=== PATIENT | female | born 1985 | race Caucasian/White ===

== ENCOUNTER 2021-04-14 15:04 | Emergency (ER) | payer MEDICAID, SELFPAY ==
[2021-04-14 15:19] VITALS: BP 119/74; PULSE 101; RESP 24; TEMP 36.8; O2SAT 100; BMI 24.9
--- NOTE | 2021-04-14 16:02 | ED_ITS ---
HPI - Nausea/Vomiting/Diarrhea General Chief complaint: Nausea/Vomiting/Diarrhea Stated complaint: headache, vomiting (11 weeks ) Time Seen by Provider: 04/14/21 15:51 Source: patient Mode of arrival: ambulatory Limitations: no limitations History of Present Illness HPI Narrative: Patient is a at 11 weeks of GA, comes in c/o vomiting and headache since this morning. Patient denies diarrhea, no abdominal pain, no cramping, no vaginal bleeding Related Data Previous Rx's Medication Instructions Recorded metoclopramide HCl 5 mg tablet 5 mg PO .T.i.d. PRN #10 tab 04/14/21 (Reglan) nitrofurantoin 100 mg PO Q12H 7 Days #14 cap 04/14/21 monohydrate/macrocrystals 100 mg capsule (Macrobid) tramadol 50 mg tablet 50 mg PO TID PRN #10 tab 04/14/21 Allergies Allergy/AdvReac Type Severity Reaction Status Date / Time No Known Allergies Allergy Unverified 02/28/20 16:25 Review of Systems Review of Systems: Constitutional : No Weight loss, No Fever, No Chills, No Night Sweats, No Fatigue, No Malaise ENT/Mouth : No Hearing loss, No Ear Pain, No Nasal Congestion, No Sinus Pain, No Hoarseness, No sore throat, No Rhinorrhea, No Swallowing Difficulty Eyes: No Eye Pain, No Swelling, No Redness, No Foreign Body, No Discharge, No Vision Changes Cardiovascular : No Chest Pain, No SOB, No Dyspnea on Exertion, No Orthopnea, No Edema, No Palpitations Respiratory : No Cough, No Sputum, No Wheezing, No Smoke Exposure, No Dyspnea Gastrointestinal : Complaining of nausea and vomiting, No Diarrhea, No Constip ation, No abdominal Pain, No Hematochezia, No Melena Genitourinary : no irregular bleeding, No Dysuria, No Urinary Frequency, No Hematuria, No Urinary Incontinence, No Urgency, No Flank Pain, No Urinary Flow Changes, No Hesitancy Musculoskeletal : No joint pain, No Myalgias, No Joint Swelling Skin : No Skin Lesions, No rash Neuro : No Weakness, No Numbness, No Paresthesias, No Loss of Consciousness, No Dizziness, No Headache Psych : No Anxiety/Panic, No Depression, No SI/HI/AH/VH, No Social Issues, Heme/Lymph: No Bruising, No Bleeding,No Lymphadenopathy Endocrine : No Polyuria, No Polydipsia, No Temperature Intolerance [facility] Social History Social History Smoked in Last 30 Days: No Use of substances other than those prescribed or required for medical reasons: No Advance Directives: No Advance Directives Information Provided: No Patient : Yes Physical Exam Vital Signs: Vital Signs: Last Vital Signs Temp 98.3 F 04/14/21 15:19 Pulse 101 H 04/14/21 15:19 Resp 20 04/14/21 16:34 BP 109/66 04/14/21 16:34 Pulse Ox 99 04/14/21 16:34 Body Mass Index 24.9 Const: Other: Appearance: Alert. Oriented X3. Seems uncomfortable Eyes: Pupils equal, round and reactive to light. ENT: Pharynx normal. Neck: Normal inspection. Neck supple. No lymph nodes noted. No crepitus CVS: Normal heart rate and rhythm. Pulses normal. Normal S1 and S2 Respiratory: No respiratory distress. Breath sounds normal. No Wheezing. No rales Abdomen: Soft and nontender. No rigidity. No distention. Skin: Skin warm and dry. Normal skin color. Normal skin turgor. Extremities: No lower extremity edema. No lower extremity edema. No Lacerations. No Rash Neuro: Oriented X 3. No motor deficit. No sensory deficit. Moving all extermities. No slurred speech. Course Course Course Narrative: pt receiverd IV fluids, metoclopramide and 1mg morphine. Patient states that she is feeling much better, no longer having a headache, not having any nausea or vomiting. Patient states she has no medication at home. Patient does have a UTI. First dose of Macrobid given in the emergency room MDM - Nausea/Vomiting/Diarrhea Lab Data Result diagrams: 04/14/21 16:18 04/14/21 16:43 Labs: Lab Results 04/14/21 04/14/21 04/14/21 Range/Units 16:18 16:43 Unknown WBC 10.1 (4.8-10.8) X10*3/uL RBC 4.20 (4.20-5.50) X10*6/uL Hgb 12.8 (12.0-16.0) g/dl Hct 37.5 (37.0-47.0) % MCV 89.3 (80.0-98.0) fL MCH 30.5 (27.0-33.0) pg MCHC 34.1 (31.0-35.0) g/dl RDW 12.1 (11.0-16.0) % Plt Count 223 (160-400) X10*3/uL MPV 10.8 (9.4-12.3) fL Immature Gran % (Auto) 1.3 H (0.0-0.4) % Neut % (Auto) 71.6 (45-73) % Lymph % (Auto) 18.2 L (20-40) % [place] % (Auto) 7.2 (2-11) % Eos % (Auto) 1.1 (0-4) % Baso % (Auto) 0.6 (0-2) % Lymph # (Auto) 1.9 (1.2-4.9) X10*3/uL [place] # (Auto) 0.7 (0.1-1.2) X10*3/uL Eos # (Auto) 0.1 (0.0-0.4) X10*3/uL Baso # (Auto) 0.1 (0.0-0.2) X10*3/uL Abs Immat Gran (auto) 0.13 H (0.00-0.03) X10*3/uL Absolute Neuts (auto) 7.26 (2.0-8.3) x10*3/uL Absolute Nucleated RBC 0.000 (0.0-0.012) X10*3/uL Nucleated RBC % (auto) 0.0 (0.0-0.2) /100WBC Sodium 138 (135-145) mmol/L Potassium 4.0 (3.3-5.1) mmol/L Chloride 106 (96-108) mmol/L Carbon Dioxide 23 (22-29) mmol/L Anion Gap 13 (12-20) BUN 7 L (9-16) mg/dL Creatinine 0.58 (0.5-1.4) mg/dL Estim Creat Clear Calc 127.5 Estimated GFR > 60 Random Glucose 82 (60-115) mg/dL Calcium 9.0 (8.4-10.2) mg/dL Total Bilirubin 0.7 (0.0-1.0) mg/dL Direct Bilirubin 0.2 (0.0-0.5) mg/dL AST 15 (5-31) U/L ALT 25 (0-31) U/L Alkaline Phosphatase 78 (39-117) U/L Total Protein 6.3 L (6.5-8.0) g/dL Albumin 4.1 (3.5-5.0) g/dL Urine Color YELLOW Urine Appearance TURBID Urine pH 7.0 (5.0-8.0) Ur Specific [place] 1.015 (1.005-1.025) Urine Protein NEG (NEG-TRACE) MG/DL Urine Glucose (UA) NEG (NEG) MG/DL Urine Ketones NEG (NEG) MG/DL Urine Blood NEG (NEG) Urine Nitrite NEG (NEG) Ur Leukocyte Esterase 3+ H (NEG) Urine RBC 0 (0) /HPF Urine WBC 5-9 H (0-4) /HPF Ur Squamous Epith Cells 3+ /LPF Ur Renal Epithelial Cell TRACE /LPF Amorphous Sediment TRACE /LPF Urine Bacteria 2+ /LPF Urine Mucus 2+ /LPF Urine Test (NEGATIVE) 04/14/21 Range/Units Unknown WBC (4.8-10.8) X10*3/uL RBC (4.20-5.50) X10*6/uL Hgb (12.0-16.0) g/dl Hct (37.0-47.0) % MCV (80.0-98.0) fL MCH (27.0-33.0) pg MCHC (31.0-35.0) g/dl RDW (11.0-16.0) % Plt Count (160-400) X10*3/uL MPV (9.4-12.3) fL Immature Gran % (Auto) (0.0-0.4) % Neut % (Auto) (45-73) % Lymph % (Auto) (20-40) % [place] % (Auto) (2-11) % Eos % (Auto) (0-4) % Baso % (Auto) (0-2) % Lymph # (Auto) (1.2-4.9) X10*3/uL [place] # (Auto) (0.1-1.2) X10*3/uL Eos # (Auto) (0.0-0.4) X10*3/uL Baso # (Auto) (0.0-0.2) X10*3/uL Abs Immat Gran (auto) (0.00-0.03) X10*3/uL Absolute Neuts (auto) (2.0-8.3) x10*3/uL Absolute Nucleated RBC (0.0-0.012) X10*3/uL Nucleated RBC % (auto) (0.0-0.2) /100WBC Sodium (135-145) mmol/L Potassium (3.3-5.1) mmol/L Chloride (96-108) mmol/L Carbon Dioxide (22-29) mmol/L Anion Gap (12-20) BUN (9-16) mg/dL Creatinine (0.5-1.4) mg/dL Estim Creat Clear Calc Estimated GFR Random Glucose (60-115) mg/dL Calcium (8.4-10.2) mg/dL Total Bilirubin (0.0-1.0) mg/dL Direct Bilirubin (0.0-0.5) mg/dL AST (5-31) U/L ALT (0-31) U/L Alkaline Phosphatase (39-117) U/L Total Protein (6.5-8.0) g/dL Albumin (3.5-5.0) g/dL Urine Color Urine Appearance Urine pH (5.0-8.0) Ur Specific [place] (1.005-1.025) Urine Protein (NEG-TRACE) MG/DL Urine Glucose (UA) (NEG) MG/DL Urine Ketones (NEG) MG/DL Urine Blood (NEG) Urine Nitrite (NEG) Ur Leukocyte Esterase (NEG) Urine RBC (0) /HPF Urine WBC (0-4) /HPF Ur Squamous Epith Cells /LPF Ur Renal Epithelial Cell /LPF Amorphous Sediment /LPF Urine Bacteria /LPF Urine Mucus /LPF Urine Test POSITIVE H (NEGATIVE) Discharge Plan Discharge Clinical Impression: Hyperemesis UTI (urinary tract infection) during Qualifiers: Trimester: first trimester Qualified Code(s): O23.41 - Unspecified infection of urinary tract in , first trimester Migraine Qualifiers: Migraine type: unspecified Status migrainosus presence: without status migrainosus Intractability: not intractable Qualified Code(s): G43.909 - Migraine, unspecified, not intractable, without status migrainosus Patient Disposition: Home, Self-Care Instructions: Hyperemesis Gravidarum (ED), Migraine Headache (ED), Urinary Tract Infection in (ED) Additional Instructions: Please follow-up with your primary care physician tomorrow. If you have any worsening or new symptoms, please return to the emergency room or call 911 Prescriptions: New nitrofurantoin monohyd/m-cryst [Macrobid] 100 mg capsule 100 mg PO Q12H 7 Days Qty: 14 RF: 0 metoclopramide HCl [Reglan] 5 mg tablet 5 mg PO .T.i.d. PRN (Reason: nausea and vomiting) Qty: 10 RF: 0 tramadol 50 mg tablet 50 mg PO TID PRN (Reason: migraine headache) Qty: 10 RF: 0
[2021-04-14 16:22] LABS: MANUAL DIFF FLAG NO
[2021-04-14 16:23] LABS: Basophils Absolute Auto 0.1 X10*3/uL (0.0-0.2); Basophils Percent Auto 0.6 % (0-2); Eosinophils Absolute Auto 0.1 X10*3/uL (0.0-0.4); Eosinophils Percent Auto 1.1 % (0-4); Hematocrit 37.5 % (37.0-47.0); Hemoglobin 12.8 g/dl (12.0-16.0); Imm Gran Abs Auto 0.13 X10*3/uL (0.00-0.03); Imm Gran Pct Auto 1.3 % (0.0-0.4); Lymphocytes Absolute Auto 1.9 X10*3/uL (1.2-4.9); Lymphocytes Percent Auto 18.2 % (20-40); Mean Corpuscular HGB Conc 34.1 g/dl (31.0-35.0); Mean Corpuscular Hemoglobin 30.5 pg (27.0-33.0); Mean Corpuscular Volume 89.3 fL (80.0-98.0); Mean Platelet Volume 10.8 fL (9.4-12.3); Monocytes Absolute Auto 0.7 X10*3/uL (0.1-1.2); Monocytes Percent Auto 7.2 % (2-11); Neutrophils Absolute Auto 7.26 x10*3/uL (2.0-8.3); Neutrophils Percent Auto 71.6 % (45-73); Platelet Count 223 X10*3/uL (160-400); Red Cell Distribution Width 12.1 % (11.0-16.0); White Blood Count 10.1 X10*3/uL (4.8-10.8)
[2021-04-14] MEDS: Metoclopramide HCl 10 MG/2 ML VIAL IVPUSH (16:28)
[2021-04-14] MEDS: 0.9 % Sodium Chloride 1,000 ML 999 ML IVCONT (16:28)
[2021-04-14] MEDS: Morphine Sulfate 2 MG/ML CARTRIDGE 1 MG IVPUSH (16:28)
[2021-04-14 16:34] VITALS: BP 109/66; RESP 20; O2SAT 99
[2021-04-14 16:51] LABS: Appearance Urine TURBID; Color Urine YELLOW; Glucose Urine UA NEG (NEG); Leukocyte Esterase Urine 3+ (NEG); Nitrite Urine NEG (NEG); Specific Gravity - Urine 1.015 (1.005-1.025); UACC Culture Trigger YES; Urine Blood NEG (NEG); Urine Ketones NEG (NEG); Urine Protein NEG (NEG-TRACE)
[2021-04-14 16:53] LABS: UPreg QC Valid YES; Urine Pregnancy POSITIVE (NEGATIVE)
[2021-04-14 17:01] LABS: Bacteria Urine 2+ /LPF; RBC Urine 0 /HPF (0)
[2021-04-14 17:02] LABS: Amorphous Sediment Urine TRACE /LPF; Mucus Urine 2+ /LPF; Renal Epithelial Cells Urine TRACE /LPF; Squamous Epithelial Cell Urine 3+ /LPF
[2021-04-14 17:09] LABS: Alanine Aminotransferase 25 U/L (0-31); Albumin Level 4.1 g/dL (3.5-5.0); Alkaline Phosphatase 78 U/L (39-117); Anion Gap 13 (12-20); Aspartate Amino Transferase 15 U/L (5-31); Bilirubin Direct 0.2 mg/dL (0.0-0.5); Bilirubin Total 0.7 mg/dL (0.0-1.0); Blood Urea Nitrogen 7 mg/dL (9-16); Carbon Dioxide 23 mmol/L (22-29); Chloride 106 mmol/L (96-108); Creatinine Clr Calc Pharmacy 127.5; Estimated Glomerular Filt Rate > 60; Glucose Random 82 mg/dL (60-115); Sodium 138 mmol/L (135-145); Total Protein 6.3 g/dL (6.5-8.0)
[2021-04-14 17:42] VITALS: BP 101/54; PULSE 98; RESP 18; O2SAT 100
[2021-04-14] MEDS: Nitrofurantoin Monohyd/M-Cryst 100 MG CAPSULE PO (17:42)
== END 2021-04-14 17:47 | disposition home or self-care (01) ==
PROVIDERS: Emergency Provider Emergency Medicine; PCP Family Medicine
DX: O21.0 Mild hyperemesis gravidarum (principal); G43.909 Migraine, unspecified, not intractable, without status migrainosus; O23.41 Unspecified infection of urinary tract in pregnancy, first trimester; Z79.899 Other long term (current) drug therapy
CPT/HCPCS: 36415; 80048; 80076; 81001; 81025; 85025; 87086; 96361; 96374; 96375; 99284; J2270; J2765

== ENCOUNTER 2023-04-10 22:55 | Inpatient (IN) | payer MEDICAID, SELFPAY ==
--- NOTE | ~2023-04-10 | CT_ITS ---
EXAMINATION: CT ABDOMEN AND PELVIS WITH CONTRAST CLINICAL INFORMATION: Right lower quadrant pain, question appendicitis COMPARISON: 12/01/2020 TECHNIQUE: Multidetector volumetric images were obtained from the superior aspect of the liver through the pubic symphysis following administration 85 mL of Omnipaque 350 intravenous contrast. Sagittal and coronal reformatted images were obtained on the technologist's workstation. Oral contrast: No This CT examination was performed using dose optimization techniques as appropriate, variously including the following: *Automated exposure control *Adjustment of mA and/or kV according to patient size (this includes techniques or standardized protocols for targeted exams where dose is matched to indication/reason for exam; i.e. extremities or head) *Use of iterative reconstruction technique DLP: 536 mGy-cm FINDINGS: LUNG BASES: The visualized lung bases are unremarkable. LIVER, GALLBLADDER, AND BILIARY TREE: The liver is normal in size, shape, and attenuation. No focal hepatic lesion or biliary ductal dilatation is present. The gallbladder is unremarkable with no evidence of radiopaque gallstones, gallbladder wall thickening, or obvious pericholecystic inflammatory changes. PANCREAS: Unremarkable. SPLEEN: Unremarkable. ADRENAL GLANDS: Unremarkable. KIDNEYS AND URETERS: Bilateral nephrograms are symmetric. No hydronephrosis or obstructing calculus identified. BLADDER: Unremarkable. GASTROINTESTINAL TRACT: No evidence of bowel obstruction or significant wall thickening. The appendix is dilated and fluid-filled measuring approximately 10 mm in diameter. Proximal appendicolith is present, and there is mild surrounding stranding. Overall appearance is suspicious for acute appendicitis. No associated free air or abscess. ABDOMINAL WALL: No significant hernia is appreciated. LYMPH NODES: Normal. VASCULAR: Unremarkable. PELVIC VISCERA: Patient appears status post hysterectomy. Small amount of pelvic free fluid. OSSEOUS STRUCTURES: Unremarkable. CT/CT abdomen pelvis w IV con IMPRESSION: Findings suspicious for acute appendicitis as described above. Small amount of pelvic free fluid, which may be reactive or physiologic.
[2023-04-10 23:01] VITALS: BP 110/72; PULSE 99; RESP 16; TEMP 36.7; O2SAT 99; BMI 23.7
[2023-04-11] VITALS (22 sets, daily range): BP systolic 98–117; BP diastolic 57–80; PULSE 78–120; RESP 14–20; TEMP 36–37.6; O2SAT 95–100; BMI 23.7
[2023-04-11 00:11] LABS: Hematocrit 41.3 % (37.0-47.0); Mean Corpuscular HGB Conc 33.9 g/dl (31.0-35.0); Mean Corpuscular Hemoglobin 30.2 pg (27.0-33.0); Mean Platelet Volume 10.6 fL (9.4-12.3); Platelet Count 223 X10*3/uL (160-400); Red Blood Count 4.64 X10*6/uL (4.20-5.50); Red Cell Distribution Width 11.9 % (11.0-16.0); White Blood Count 19.4 X10*3/uL (4.8-10.8)
[2023-04-11 00:19] LABS: Alanine Aminotransferase 59 U/L (0-31); Albumin Level 4.9 g/dL (3.5-5.0); Alkaline Phosphatase 133 U/L (39-117); Anion Gap 18 (12-20); Aspartate Amino Transferase 28 U/L (5-31); Bilirubin Total 0.6 mg/dL (0.0-1.0); Blood Urea Nitrogen 10 mg/dL (9-16); Calcium 11.2 mg/dL (8.4-10.2); Carbon Dioxide 23 mmol/L (22-29); Chloride 102 mmol/L (96-108); Creatinine Clr Calc Pharmacy 89.5; Estimated Glomerular Filt Rate > 60; Glucose Random 101 mg/dL (60-115); Lipase 27 U/L (8-78); Sodium 139 mmol/L (135-145); Total Protein 7.9 g/dL (6.5-8.0)
--- NOTE | 2023-04-11 00:45 | ED_ITS ---
HPI - Abdominal Pain General Chief Complaint: Abdominal Pain Stated Complaint: RT side abd pain Time Seen by Provider: 04/11/23 00:41 Source: patient Mode of arrival: ambulatory Limitations: no limitations History of Present Illness HPI narrative: Patient status post hysterectomy comes in with acute onset of pain right lower quadrant since 18:00 has severe nausea and vomiting pain increased on ambulation never had similar pain in the past no history of kidney stone or urinary symptoms no fever or chills no diarrhea Related Data Previous Rx's Medication Instructions Recorded metoclopramide HCl 5 mg tablet 5 mg PO .T.i.d. PRN nausea and 04/14/21 (Reglan) vomiting #10 tabs nitrofurantoin 100 mg PO Q12H 7 days #14 caps 04/14/21 monohydrate/macrocrystals 100 mg capsule (Macrobid) tramadol 50 mg tablet 50 mg PO TID PRN migraine headache 04/14/21 #10 tabs Allergies Allergy/AdvReac Type Severity Reaction Status Date / Time No Known Allergies Allergy Unverified 02/28/20 16:25 Review of Systems Review of Systems Yes all other systems are reviewed and are negative [facility] Past Medical History Surgical History (Updated 04/11/23 @ 00:53 by Danny Merlos MD) Hx of hysterectomy Social History Social History Smoked in Last 30 Days: No Use of substances other than those prescribed or required for medical reasons: No Advance Directives: No Advance Directives Information Provided: Yes Patient : No Physical Exam ED Vital Signs: Vital Signs - 24 hr 04/10/23 23:01 04/11/23 00:59 Temperature 98.0 F 99.2 F Pulse Rate 99 113 H Respiratory Rate 16 16 Blood Pressure 110/72 117/80 Pulse Oximetry 99 96 Oxygen Delivery Method Room Air Room Air BMI result Body Mass Index 23.7 Appearance: Alert. Oriented X3. In moderate distress Eyes: PERRLA, no pallor/ icterus ENT: Pharynx normal. Oral Mucosa moist Neck: Normal inspection. Neck supple. CVS: Normal heart rate and rhythm. Pulses normal. Respiratory: No respiratory distress. Equal air entry bilateral, no wheezing/rales/rhonchi Abdomen: Soft , tenderness right lower quadrant with guarding and rebound tenderness Bowel sounds are present, no mass palpable, no CVA tenderness Skin: Skin warm and dry. Normal skin color. Normal skin turgor. Extremities: No lower extremity edema. No calf tenderness Neuro: Oriented X 3. Medical Decision Making Medical Decision Making [facility] Narrative: Patient acute onset of right lower quadrant pain possible appendicitis Patient signed out to Dr. Archer pending CT scan report Differential Diagnosis Differential Diagnoses: The differential diagnosis associated with the presentation includes Acute appendicitis/kidney stone/ovarian cyst/colitis Lab Data [facility] Lab Attestation statement: I reviewed the patient's lab results. 04/10/23 23:57 04/10/23 23:57 Labs: Lab Results 04/10/23 04/11/23 Range/Units 23:57 00:56 WBC 19.4 H (4.8-10.8) X10*3/uL RBC 4.64 (4.20-5.50) X10*6/uL Hgb 14.0 (12.0-16.0) g/dl Hct 41.3 (37.0-47.0) % MCV 89.0 (80.0-98.0) fL MCH 30.2 (27.0-33.0) pg MCHC 33.9 (31.0-35.0) g/dl RDW 11.9 (11.0-16.0) % Plt Count 223 (160-400) X10*3/uL MPV 10.6 (9.4-12.3) fL Absolute Nucleated RBC 0.000 (0.0-0.012) X10*3/uL Nucleated RBC % (auto) 0.0 (0.0-0.2) /100WBC Sodium 139 (135-145) mmol/L Potassium 4.0 (3.3-5.1) mmol/L Chloride 102 (96-108) mmol/L Carbon Dioxide 23 (22-29) mmol/L Anion Gap 18 (12-20) BUN 10 (9-16) mg/dL Creatinine 0.75 (0.5-1.4) mg/dL Estim Creat Clear Calc 89.5 Estimated GFR > 60 Random Glucose 101 (60-115) mg/dL Calcium 11.2 H D (8.4-10.2) mg/dL Total Bilirubin 0.6 (0.0-1.0) mg/dL AST 28 (5-31) U/L ALT 59 H (0-31) U/L Alkaline Phosphatase 133 H (39-117) U/L Total Protein 7.9 (6.5-8.0) g/dL Albumin 4.9 (3.5-5.0) g/dL Lipase 27 (8-78) U/L Urine Color Yellow Urine Appearance Clear Urine pH 5.5 (5.0-9.0) Ur Specific [place] 1.020 (1.005-1.025) Urine Protein Negative (Neg-Trace) mg/dL Urine Glucose (UA) Negative (Negative) mg/dL Urine Ketones Negative (Negative) mg/dL Urine Blood Negative (Negative) Urine Nitrite Negative (Negative) Ur Leukocyte Esterase Trace H (Negative) Urine RBC 0-2 (0-2) /HPF Urine WBC 0-5 (0-5) /HPF Ur Squamous Epith Cells 0-2 (0-2) /HPF Urine Bacteria None Seen (None Seen) Hyaline Casts 0-2 (0-2) /LPF Medications Administered Discontinued Medications Generic Name Dose Route Start Last Admin Trade Name Peterq PRN Reason Stop Dose Admin Sodium Chloride 1,000 mls @ 999 mls/hr 04/11/23 00:44 04/11/23 00:56 Ns IV 04/11/23 01:44 999 mls/hr .Q1H1M ONE Administration Morphine Sulfate 4 mg 04/11/23 00:44 04/11/23 00:56 Morphine Sulfate 4 Mg/Ml Cartridge IVPUSH 04/11/23 00:45 4 mg ONCE ONE Administration Protocol Ondansetron HCl 4 mg 04/11/23 00:44 04/11/23 00:56 Ondansetron Hcl 4 Mg/2 Ml Vial IVPUSH 04/11/23 00:45 4 mg ONCE ONE Administration Discharge Plan Discharge Clinical Impression: Abdominal pain Patient Disposition: Still a Patient Prescriptions: No Action nitrofurantoin monohyd/m-cryst [Macrobid] 100 mg capsule 100 mg PO Q12H 7 Days Qty: 14 0RF Rx Instructions: must administer with a meal/food metoclopramide HCl [Reglan] 5 mg tablet 5 mg PO .T.i.d. PRN (Reason: nausea and vomiting) Qty: 10 0RF tramadol 50 mg tablet 50 mg PO TID PRN (Reason: migraine headache) Qty: 10 0RF
[2023-04-11] MEDS: 0.9 % Sodium Chloride 1,000 ML 999 ML IV (00:56)
[2023-04-11] MEDS: Morphine Sulfate 4 MG/ML CARTRIDGE IVPUSH ×2 (00:56→01:57)
[2023-04-11] MEDS: ondansetron HCL 4 MG/2 ML VIAL IVPUSH ×2 (00:56→23:16)
[2023-04-11 01:04] LABS: Appearance Urine Clear; Color Urine Yellow; Glucose Urine UA Negative (Negative); Leukocyte Esterase Urine Trace (Negative); Nitrite Urine Negative (Negative); PH 5.5 (5.0-9.0); UMIC TRIGGER UACC YES; Urine Blood Negative (Negative); Urine Ketones Negative (Negative); Urine Protein Negative (Neg-Trace)
[2023-04-11 01:06] LABS: Bacteria Urine None Seen (None Seen); Hyaline Casts Urine 0-2 /LPF (0-2); RBC Urine 0-2 /HPF (0-2); Squamous Epithelial Cell Urine 0-2 /HPF (0-2); WBC Urine 0-5 /HPF (0-5)
--- NOTE | 2023-04-11 01:07 | PC.NURSE ---
Pt presents to ED with complaints of right lower abdominal pain starting suddenly earlier tonight. Pt endorses nausea and vomiting in the waiting room. Pt is A&Ox4, GCS 15, with warm, dry skin. YU Wilhelm placed a 20g IV in the right AC and pt was medicated per AUG. Pt labs drawn and sent. Pt waiting CT at this time.
[2023-04-11] MEDS: Piperacillin Sodium/Tazobactam 3.375 GM in 0.9 % Sodium Chloride 50 ML IV ×4 (01:58→19:30)
--- NOTE | 2023-04-11 02:34 | PM.HPGS ---
History of Present Illness History of Present Illness Date of Service: 04/11/23 Chief complaint: Appendicitis, Acute Narrative: Paola Mack is a 37 year old female who presented with vague abdominal pain localizing to her right lower quadrant associated with anorexia. She was found to have a leukocytosis, an appendicolith and swollen appendix on CT. Her , Edmundo, is at the bedside. Patient gave permission to discuss her health in front of him a. She denies any personal or family history of GI malignancy, Crohn's disease, and denies any prior issues of chronic GI distress. Patient reports a past surgical history of a hysterectomy for EARL. She denies any significant family history including inflammatory bowel disease in GI malignancy She denies any smoking, drinking and works as a school nurse Review of Systems Review of Systems: Yes all other systems are reviewed and are negative Constitutional: Constitutional: Reports as per [facility] Surgical History Surgical History Hx of hysterectomy Social History Social History Household Members: Family Housing: House Do you presently have visiting nurse or other home services: No Patient Tobacco Use Status: Never used Tobacco Smoked in Last 30 Days: No Use of substances other than those prescribed or required for medical reasons: No Have you been hit, kicked, punched, or otherwise hurt by someone within the past year? If so, by whom?: No Do you feel safe in your current relationship?: Yes Is there a partner from a previous relationship who is making you feel unsafe now?: No Are you made to feel afraid or neglected: No Advance Directives: No Advance Directives Information Provided: Yes Do you have thoughts of harming others: None Do you have a plan to hurt others: No Plan Recently lost weight without trying: Unsure Nutrition Risks: No Nutritional Risk Patient : No : No Poor oral hygiene: No Meds Allergies Allergy/AdvReac Type Severity Reaction Status Date / Time No Known Allergies Allergy Unverified 02/28/20 16:25 Physical Exam Vital Signs: Vital Signs: Last Vital Signs Temp 99.2 F 04/11/23 00:59 Pulse 116 H 04/11/23 02:03 Resp 16 04/11/23 02:03 BP 110/67 04/11/23 02:03 Pulse Ox 96 04/11/23 02:03 O2 Del Method Room Air 04/11/23 02:03 BMI result Body Mass Index 23.7 On exam, the patient appears tired and uncomfortable but she is nontoxic She is in no acute respiratory distress Heart is regular Lungs are clear and equal anteriorly Abdomen has right lower quadrant tenderness with irritation to percussion but her abdomen is not rigid and her pain is localized to the right lower quadrant. Results Results Labs: Short CBC 04/10/23 Range/Units 23:57 WBC 19.4 H (4.8-10.8) X10*3/uL Hgb 14.0 (12.0-16.0) g/dl Hct 41.3 (37.0-47.0) % Plt Count 223 (160-400) X10*3/uL BMP 04/10/23 23:57 Sodium 139 Potassium 4.0 Chloride 102 Carbon Dioxide 23 BUN 10 Creatinine 0.75 Calcium 11.2 H D Liver Function 04/10/23 Range/Units 23:57 Total Bilirubin 0.6 (0.0-1.0) mg/dL AST 28 (5-31) U/L ALT 59 H (0-31) U/L Alkaline Phosphatase 133 H (39-117) U/L Albumin 4.9 (3.5-5.0) g/dL Urine 04/11/23 Range/Units 00:56 Urine Color Yellow Urine Appearance Clear Urine pH 5.5 (5.0-9.0) Ur Specific [place] 1.020 (1.005-1.025) Urine Protein Negative (Neg-Trace) mg/dL Urine Glucose (UA) Negative (Negative) mg/dL Abdomen CT scan report/results: report reviewed and image reviewed CT scan - pelvis: report reviewed and image reviewed Assessment and Plan (1) Acute appendicitis: Status: Acute Plan I reviewed options with the patient including medical management with IV antibiotics verses operative appendectomy. The inherent risks of bleeding, infection, need to leave a temporary drain, activity restrictions, possible work issues, need to convert to open surgery were all discussed and her questions seemed to be satisfactorily answered. Her 's questions seemed to be satisfactorily answered. Patient seemed understand her options and wanted to proceed with a laparoscopic, possible open appendectomy as recommended. See orders; void urinary bladder monitoring coordinator, continue IV antibiotics. SCDs. For OR this morning at 10:00, continue NPO Time Spent With Patient Time: Total time managing care of this patient today ____ minutes. Quality Stroke Does the patient have a stroke diagnosis?: No VTE Prior VTE?: No VTE Risk Level:: Surgical - moderate VTE Device Contraindication: N/A - Device Ordered VTE Drug Contraindication: Treatment Not Indicated Procedures Date of Service Date of Service: 04/11/23
[2023-04-11] MEDS: HYDROmorphone HCl 0.5 MG/0.5 ML SYRINGE 0.25 MG IVPUSH ×4 (02:59→14:26)
[2023-04-11] MEDS: Lactated Ringers 1,000 ML 125 ML IVCONT ×3 (02:59→17:27)
--- NOTE | 2023-04-11 08:12 | P.OP_ITS ---
Operative Note Operative Note Date of Service: 04/11/23 Narrative: Preop diagnosis: [Acute appendicitis] Postop diagnosis: [same] Procedure: [laparoscopic appendectomy] Surgeon: Ortega Naik MD Assist: [none] Anesthesia: [GET, local: ] Estimated blood loss: [3cc] Specimen: [Acutely inflamed appendix] Intraoperative findings: [Acutely inflamed appendix with serous fluid in the pelvis that was aspirated. No significant adhesions from her prior hysterectomy were appreciated. Otherwise, grossly normal peritoneal surface and liver visualized] Indications: [The patient is a 37-year-old woman with no significant GI history who has a history of hysterectomy for EARL who presented with vague abdominal pain localizing to her right lower quadrant, leukocytosis and a CT confirming acute appendicitis. Options were discussed including medical management versus operative appendectomy. The patient seemed understand her options. The inherent risks of a laparoscopic, possible open appendectomy include: Bleeding, infection, conversion to open surgery, possible need for a temporary drain, possible need for blood transfusion or reoperation in the event of bleeding and the unlikely but possible issue of changing the plan due to intraoperative pathology that was unexpected. Patient seemed understand her options, both she and her Edmundo had their questions answered and the patient wanted to proceed.] Procedure: [The patient was identified in the preoperative holding area and again in the operating room. An appropriate time-out was performed. 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 Sequential compression stockings were placed. The patient was induced in general endotracheal anesthesia administered with excellent effect. The abdomen was widely prepped and draped in the usual manner for surgery. Preemptive local was used at all trocar insertion sites. The abdomen was accessed using a Veress needle. A vertical supraumbilical incision was made through 1 of her prior incision scars, the Veress needle inserted without incident, an appropriate drop test performed and a pneumoperitoneum of 15 mmHg was obtained using carbon dioxide. Opening pressures were 4 mmHg. Next, the Veress needle was withdrawn and the abdomen was accessed through the incision with a 30 degree/5 mm laparoscoped over Optiview trocar technique without incident. In examining the bowel & mesentary deep to the Veress needle, no evidence of injury was present. The remaining trocars were placed under direct laparoscopic vision with preemptive analgesia. The patient was then positioned in Trendelenburg, banked left. The appendix was identified and tracked down to the cecum. A window was made in the mesoappendix and the mesoappendix carefully dissected using the 5 mm LigaSure [place] tip. An Endo-FREDIS 30 stapler, purple load, was placed across t he appendiceal base on the cecum the and fired with good hemostasis and closure. The specimen was placed in an Endo-Catch bag and delivered through the 12 mm port in the left lower quadrant. Operative field was irrigated and inspected for hemostasis which was good. The serous fluid in the pelvis was aspirated and noted to be clear, likely transit dated due to the appendicitis. Patient was returned to neutral position, the abdomen deflated and the trocars removed. 12 mm fascia was closed with 0- Polysorb and skin closed with 4-0 Monocryl subcuticular sutures. The abdomen was washed and dried, Mastisol and Steri-Strips applied followed by Band-Aids. Patient tolerated the procedure well and was sent to the recovery in stable condition. All sponge instrument counts were correct. At the patient's request, I called her Edmundo at [phone] to review operative findings and plan. His questions seemed to be satisfactorily answered.]
--- NOTE | 2023-04-11 09:16 | PC.NURSE ---
Report called to Stacey Chowdhury in [facility]
--- NOTE | 2023-04-11 09:53 | HO.ANESPROP2 ---
HPI - Anesthesia Eval Consult details Narrative: for lap. appendectomy PMFSH Active Problems Active Problems: All Active Problems (Updated 04/11/23 @ 08:10 by Ortega Naik MD) Acute appendicitis (Acute) Abdominal pain (Acute) Past Medical History Patient : No Family History Family history of problems with anesthesia: No Surgical History Surgical History (Updated 04/11/23 @ 09:43 by Radha Brown RN) Hx of tonsillectomy Hx of hysterectomy History of Problems with Anesthesia: No Social History Social History Household Members: Family Housing: House Do you presently have visiting nurse or other home services: No Patient Tobacco Use Status: Never used Tobacco Meds Allergies Allergy/AdvReac Type Severity Reaction Status Date / Time No Known Allergies Allergy Unverified 02/28/20 16:25 Active Medications: Current Medications Acetaminophen (Acetaminophen 325 Mg Tablet) 975 mg PO Q6H PRN PRN Reason: Pain, Mild (Pain Scale 1-3) Hydromorphone HCl (Hydromorphone Hcl 0.5 Mg/0.5 Ml Syringe) 0.25 mg IVPUSH Q2H PRN; Protocol PRN Reason: Pain, Moderate(Pain Scale 4-6) Last Admin: 04/11/23 07:44 Dose: 0.25 mg Piperacillin Sod/Tazobactam (Sod 3.375 gm/ Sodium Chloride) 50 mls @ 100 mls/hr IV Q6H [facility] Last Infusion: 04/11/23 08:17 Dose: Infused Lactated Ringer's (Lr) 1,000 mls @ 125 mls/hr IVCONT .Q8H [facility] Last Admin: 04/11/23 02:59 Dose: 125 mls/hr Ondansetron HCl (Ondansetron Hcl 4 Mg/2 Ml Vial) 4 mg IVPUSH Q6H PRN PRN Reason: Nausea and Vomiting Exam Exam Date and Time: April 11, 2023 0953 Height,Weight and Vital Signs: Height 5 ft 4 in Weight 62.596 kg Last Vital Signs Temp 98 F 04/11/23 06:50 Pulse 114 H 04/11/23 06:50 Resp 16 04/11/23 06:50 BP 98/57 L 04/11/23 06:50 Pulse Ox 98 04/11/23 06:50 O2 Del Method Room Air 04/11/23 06:50 Pertinent Lab Results Pertinent Lab Results: Laboratory Tests 04/10/23 04/11/23 23:57 00:56 WBC 19.4 H RBC 4.64 Hgb 14.0 Hct 41.3 MCV 89.0 MCH 30.2 MCHC 33.9 RDW 11.9 Plt Count 223 MPV 10.6 Absolute Nucleated RBC 0.000 Nucleated RBC % (auto) 0.0 Sodium 139 Potassium 4.0 Chloride 102 Carbon Dioxide 23 Anion Gap 18 BUN 10 Creatinine 0.75 Estim Creat Clear Calc 89.5 Estimated GFR > 60 Random Glucose 101 Calcium 11.2 H D Total Bilirubin 0.6 AST 28 ALT 59 H Alkaline Phosphatase 133 H Total Protein 7.9 Albumin 4.9 Lipase 27 Urine Color Yellow Urine Appearance Clear Urine pH 5.5 Ur Specific [place] 1.020 Urine Protein Negative Urine Glucose (UA) Negative Urine Ketones Negative Urine Blood Negative Urine Nitrite Negative Ur Leukocyte Esterase Trace H Urine RBC 0-2 Urine WBC 0-5 Ur Squamous Epith Cells 0-2 Urine Bacteria None Seen Hyaline Casts 0-2 Airway Mallampati Class: I TM Dist: >3cm Neck ROM: Full Loose/Missing/Broken Teeth: No Heart: ok Lungs: ok Assessment and Plan Assessment Anesthesia Assessment: Anesthesia Plan Discussed and Chart Reviewed Final Anesthetic Review Family History of Problems with Anesthesia: No History of Problems with Anesthesia: No NPO: Yes ASA Class: I and Emergency Final Preanesthetic Review: No Changes in Pt Med Stat, Meds/Allgs Chart Reviewed, Consent Obtained/Reviewed and Anes Risks/Benef Reviewed Patient Risk: Intermediate Procedure Risk: Intermediate Anesthetic Plan Anesthetic Plan: GA and Agree w/ Assess. and Plan Disposition: Standard PACU
--- NOTE | 2023-04-11 15:01 | PHA.MEDREC ---
Pharmacy Consult ? Medication Reconciliation Pharmacy has completed the medication reconciliation. Spoke to patient and verified medication list.
--- NOTE | 2023-04-11 15:58 | PM.PNGS ---
Subjective Subjective Date of Service: 04/11/23 Patient reports: still having pain and pain is less Interval history: The patient is seen on med surge postoperatively. She still is having abdominal pain but denies any nausea or vomiting. She has not gotten any liquids yet. Patient is sleepy which is not unexpected given being up all night. She has no difficulty breathing or shortness of breath. Physical Exam Vital Signs: Vital Signs: Last Vital Signs Temp 97.8 F 04/11/23 15:00 Pulse 100 04/11/23 15:00 Resp 18 04/11/23 15:00 BP 103/67 04/11/23 15:00 Pulse Ox 96 04/11/23 15:00 O2 Del Method Room Air 04/11/23 15:00 BMI result Body Mass Index 23.7 On exam she is nontoxic She is having no respiratory difficulty Dressings are clean and intact Objective Data Active Medications Acetaminophen (Acetaminophen 325 Mg Tablet) 975 mg PO Q6H PRN PRN Reason: Pain, Mild (Pain Scale 1-3) Docusate Sodium (Docusate Sodium 100 Mg Capsule) 200 mg PO BID [facility] Fentanyl (Fentanyl Citrate/Pf 100 Mcg/2 Ml Vial) 50 mcg IVPUSH Q5M PRN; Protocol PRN Reason: Pain, Severe (Pain Scale 7-10) Hydromorphone HCl (Hydromorphone Hcl 0.5 Mg/0.5 Ml Syringe) 0.25 mg IVPUSH Q2H PRN; Protocol PRN Reason: Pain, Moderate(Pain Scale 4-6) Last Admin: 04/11/23 14:26 Dose: 0.25 mg Documented By: MIMI Hydromorphone HCl (Hydromorphone Hcl 0.5 Mg/0.5 Ml Syringe) 1 mg IVPUSH Q5M PRN; Protocol PRN Reason: Pain, Severe (Pain Scale 7-10) Piperacillin Sod/Tazobactam (Sod 3.375 gm/ Sodium Chloride) 50 mls @ 100 mls/hr IV Q6H [facility] Last Admin: 04/11/23 14:34 Dose: 100 mls/hr Documented By: MIMI Lactated Ringer's (Lr) 1,000 mls @ 80 mls/hr IVCONT .[id number] [facility] Last Admin: 04/11/23 12:31 Dose: 125 mls/hr Documented By: MIMI Ondansetron HCl (Ondansetron Hcl 4 Mg/2 Ml Vial) 4 mg IVPUSH Q6H PRN PRN Reason: Nausea and Vomiting Ondansetron HCl (Ondansetron Hcl 4 Mg/2 Ml Vial) 4 mg IVPUSH ONCE PRN PRN Reason: Nausea and Vomiting Oxycodone HCl (Oxycodone Hcl Immed Release 5 Mg Tablet) 5 mg PO Q4H PRN PRN Reason: Pain, Moderate(Pain Scale 4-6) Labs 04/10/23 23:57 04/10/23 23:57 Labs: Laboratory Results - last 24 hr 04/10/23 04/11/23 23:57 00:56 MCV 89.0 MCH 30.2 MCHC 33.9 RDW 11.9 Plt Count 223 MPV 10.6 Absolute Nucleated RBC 0.000 Nucleated RBC % (auto) 0.0 Anion Gap 18 Estim Creat Clear Calc 89.5 Estimated GFR > 60 Random Glucose 101 Calcium 11.2 H D Total Bilirubin 0.6 AST 28 ALT 59 H Alkaline Phosphatase 133 H Total Protein 7.9 Albumin 4.9 Lipase 27 Urine Color Yellow Urine Appearance Clear Urine pH 5.5 Ur Specific [place] 1.020 Urine Protein Negative Urine Glucose (UA) Negative Urine Ketones Negative Urine Blood Negative Urine Nitrite Negative Ur Leukocyte Esterase Trace H Urine RBC 0-2 Urine WBC 0-5 Ur Squamous Epith Cells 0-2 Urine Bacteria None Seen Hyaline Casts 0-2 Procedures Date of Service Date of Service: 04/11/23 Progress Note: A&P Assessment and plan (1) S/P appendectomy: Status: Acute (2) Acute appendicitis: Status: Acute Plan I have recommended continued observation and repeat labs given her current clinical state, presenting leukocytosis. Patient was reassured that she had very clear acute appendicitis and postoperative plan was reviewed, her questions answered. At her request, I left a voicemail with her , Edmundo. Time Spent With Patient Time: Total time managing care of this patient today ____ minutes. Quality Stroke Does the patient have a stroke diagnosis?: No VTE Prior VTE?: No VTE Risk Level:: Surgical - moderate VTE Device Contraindication: N/A - Device Ordered VTE Drug Contraindication: Treatment Not Indicated
[2023-04-11] MEDS: Acetaminophen 325 MG TABLET 975 MG PO (17:27)
[2023-04-11] MEDS: oxyCODONE HCl Immed Release 5 MG TABLET PO ×2 (17:28→23:07)
[2023-04-11] MEDS: Docusate Sodium 100 MG CAPSULE 200 MG PO (19:30)
[2023-04-12] MEDS: Acetaminophen 325 MG TABLET 975 MG PO ×2 (00:02→08:23)
[2023-04-12] MEDS: Piperacillin Sodium/Tazobactam 3.375 GM in 0.9 % Sodium Chloride 50 ML IV ×2 (02:21→08:19)
[2023-04-12 03:55] VITALS: BP 109/61; PULSE 92; RESP 16; TEMP 36; O2SAT 98
[2023-04-12] MEDS: Butalb/Acetamin/Caff 50/325/40 TABLET 1 TAB PO (05:54)
[2023-04-12 06:09] LABS: MANUAL DIFF FLAG NO
[2023-04-12 06:16] LABS: Basophils Percent Auto 0.3 % (0-2); Eosinophils Absolute Auto 0.1 X10*3/uL (0.0-0.4); Eosinophils Percent Auto 1.3 % (0-4); Hematocrit 34.4 % (37.0-47.0); Hemoglobin 11.6 g/dl (12.0-16.0); Imm Gran Abs Auto 0.04 X10*3/uL (0.00-0.03); Imm Gran Pct Auto 0.4 % (0.0-0.4); Lymphocytes Absolute Auto 1.7 X10*3/uL (1.2-4.9); Lymphocytes Percent Auto 18.2 % (20-40); Mean Corpuscular HGB Conc 33.7 g/dl (31.0-35.0); Mean Corpuscular Hemoglobin 30.1 pg (27.0-33.0); Mean Corpuscular Volume 89.1 fL (80.0-98.0); Mean Platelet Volume 10.3 fL (9.4-12.3); Monocytes Absolute Auto 0.7 X10*3/uL (0.1-1.2); Neutrophils Absolute Auto 6.5 x10*3/uL (2.0-8.3); Neutrophils Percent Auto 71.8 % (45-73); Platelet Count 187 X10*3/uL (160-400); Red Blood Count 3.86 X10*6/uL (4.20-5.50); Red Cell Distribution Width 11.8 % (11.0-16.0); White Blood Count 9.1 X10*3/uL (4.8-10.8)
[2023-04-12 06:36] LABS: Anion Gap 14 (12-20); Blood Urea Nitrogen 5 mg/dL (9-16); Carbon Dioxide 23 mmol/L (22-29); Chloride 105 mmol/L (96-108); Creatinine Clr Calc Pharmacy 100.2; Estimated Glomerular Filt Rate > 60; Glucose Random 87 mg/dL (60-115); Potassium 3.6 mmol/L (3.3-5.1); Sodium 138 mmol/L (135-145)
--- NOTE | 2023-04-12 06:52 | PM.PNGS ---
Subjective Subjective Date of Service: 04/12/23 Patient reports: no new complaints, feels better, still having pain, tolerating liquids well and flatus Interval history: The patient reports interval improvement since last night but still notes incisional pain as to be expected. She denies chest pain, difficulty breathing, shortness of breath. She denies nausea or vomiting. Physical Exam Vital Signs: Vital Signs: Last Vital Signs Temp 96.8 F 04/12/23 03:55 Pulse 92 04/12/23 03:55 Resp 16 04/12/23 03:55 BP 109/61 04/12/23 03:55 Pulse Ox 98 04/12/23 03:55 O2 Del Method Room Air 04/11/23 23:55 BMI result Body Mass Index 23.7 On exam, she is nontoxic She is in no acute respiratory distress Abdominal dressings are clean, dry and intact with appropriate abdominal incisional pain Objective Data Active Medications Acetaminophen (Acetaminophen 325 Mg Tablet) 975 mg PO Q6H PRN PRN Reason: Pain, Mild (Pain Scale 1-3) Last Admin: 04/12/23 00:02 Dose: 975 mg Documented By: TRACI Docusate Sodium (Docusate Sodium 100 Mg Capsule) 200 mg PO BID [facility] Last Admin: 04/11/23 19:30 Dose: 200 mg Documented By: TRACI Fentanyl (Fentanyl Citrate/Pf 100 Mcg/2 Ml Vial) 50 mcg IVPUSH Q5M PRN; Protocol PRN Reason: Pain, Severe (Pain Scale 7-10) Hydromorphone HCl (Hydromorphone Hcl 0.5 Mg/0.5 Ml Syringe) 0.25 mg IVPUSH Q2H PRN; Protocol PRN Reason: Pain, Moderate(Pain Scale 4-6) Last Admin: 04/11/23 14:26 Dose: 0.25 mg Documented By: MIMI Hydromorphone HCl (Hydromorphone Hcl 0.5 Mg/0.5 Ml Syringe) 1 mg IVPUSH Q5M PRN; Protocol PRN Reason: Pain, Severe (Pain Scale 7-10) Piperacillin Sod/Tazobactam (Sod 3.375 gm/ Sodium Chloride) 50 mls @ 100 mls/hr IV Q6H [facility] Last Infusion: 04/12/23 02:54 Dose: Infused Documented By: TRACI Lactated Ringer's (Lr) 1,000 mls @ 80 mls/hr IVCONT .[id number] [facility] Last Infusion: 04/12/23 01:27 Dose: Infused Documented By: TRACI Ondansetron HCl (Ondansetron Hcl 4 Mg/2 Ml Vial) 4 mg IVPUSH Q6H PRN PRN Reason: Nausea and Vomiting Last Admin: 04/11/23 23:16 Dose: 4 mg Documented By: TRACI Ondansetron HCl (Ondansetron Hcl 4 Mg/2 Ml Vial) 4 mg IVPUSH ONCE PRN PRN Reason: Nausea and Vomiting Oxycodone HCl (Oxycodone Hcl Immed Release 5 Mg Tablet) 5 mg PO Q4H PRN PRN Reason: Pain, Moderate(Pain Scale 4-6) Last Admin: 04/11/23 23:07 Dose: 5 mg Documented By: TRACI Labs 04/12/23 05:58 04/12/23 05:58 Labs: Laboratory Results - last 24 hr 04/12/23 05:58 MCV 89.1 MCH 30.1 MCHC 33.7 RDW 11.8 Plt Count 187 MPV 10.3 Immature Gran % (Auto) 0.4 Neut % (Auto) 71.8 Lymph % (Auto) 18.2 L [place] % (Auto) 8.0 Eos % (Auto) 1.3 Baso % (Auto) 0.3 Lymph # (Auto) 1.7 [place] # (Auto) 0.7 Eos # (Auto) 0.1 Baso # (Auto) 0.0 Abs Immat Gran (auto) 0.04 H Absolute Neuts (auto) 6.5 Absolute Nucleated RBC 0.000 Nucleated RBC % (auto) 0.0 Anion Gap 14 Estim Creat Clear Calc 100.2 Estimated GFR > 60 Random Glucose 87 Calcium 9.0 D Procedures Date of Service Date of Service: 04/12/23 Progress Note: A&P Assessment and plan (1) S/P appendectomy: Status: Acute (2) Acute appendicitis: Status: Acute Plan Instructions regarding diet and activity reviewed and apparently understood. Patient has been advanced to a regular diet and, if tolerated should be okay for discharge later this morning. Prescriptions were sent to the hospital pharmacy for her convenience. I will need to see her in 1 week, sooner if she has problems. Time Spent With Patient Time: Total time managing care of this patient today ____ minutes. Quality Stroke Does the patient have a stroke diagnosis?: No VTE Prior VTE?: No VTE Risk Level:: Surgical - moderate VTE Device Contraindication: N/A - Device Ordered VTE Drug Contraindication: Treatment Not Indicated
[2023-04-12 07:00] VITALS: BP 102/59; PULSE 87; RESP 16; TEMP 36.6; O2SAT 97
--- NOTE | 2023-04-12 08:05 | P.DS_ITS ---
DS: Providers Provider Date of Service: 04/12/23 Date of admission: 04/11/23 02:36 Primary care physician: Unknown Physician Consults: 04/11/23 02:25 Consult to General Surgery Stat Consulting Provider: [facility] General Surgeons Reason for consultation: appendicitis Has provider been notified: No DS: Diagnosis Discharge Diagnosis (1) S/P appendectomy: Status: Acute (2) Acute appendicitis: Status: Acute DS: Summary Hospital Course Hospital Course: See admitting H and P for full details. Briefly, this 37-year-old woman was admitted with abdominal pain and noted to have acute appendicitis with significant leukocytosis. After hydration and bowel rest, she was taken urgently for a laparoscopic appendectomy. Postoperatively, her diet advancement was somewhat sluggish requiring her to be in the hospital overnight but at the day of discharge on postop day 1, she was tolerating clear liquids which was advanced to a regular diet, her pain adequately controlled and she was discharged in improved condition. Time Spent with Patient Time attestation: Total time managing care of this patient today ____ minutes. Discharge coordination time: Less than 30 minutes Quality: Safe Use of Opioids Does Pt have an Active Cancer Diagnosis on the Problem List?: No Quality: Stroke Does the patient have a stroke diagnosis?: No Physical Exam Vital Signs: Vital Signs: Last Vital Signs Temp 97.8 F 04/12/23 07:00 Pulse 87 04/12/23 07:00 Resp 16 04/12/23 07:00 BP 102/59 L 04/12/23 07:00 Pulse Ox 97 04/12/23 07:00 O2 Del Method Room Air 04/12/23 07:00 BMI result Body Mass Index 23.7 DS: Data Data Completed and Pending Pending studies at discharge: Pending at discharge 04/11/23 10:54 Surgical [PTH] Routine Labs on day of discharge: Laboratory Results - last 24 hr 04/12/23 05:58 WBC 9.1 RBC 3.86 L Hgb 11.6 L Hct 34.4 L MCV 89.1 MCH 30.1 MCHC 33.7 RDW 11.8 Plt Count 187 MPV 10.3 Immature Gran % (Auto) 0.4 Neut % (Auto) 71.8 Lymph % (Auto) 18.[address] [place] % (Auto) 8.0 Eos % (Auto) 1.3 Baso % (Auto) 0.3 Lymph # (Auto) 1.7 [place] # (Auto) 0.7 Eos # (Auto) 0.1 Baso # (Auto) 0.0 Abs Immat Gran (auto) 0.04 H Absolute Neuts (auto) 6.5 Absolute Nucleated RBC 0.000 Nucleated RBC % (auto) 0.0 Sodium 138 Potassium 3.6 Chloride 105 Carbon Dioxide 23 Anion Gap 14 BUN 5 L Creatinine 0.67 Estim Creat Clear Calc 100.2 Estimated GFR > 60 Random Glucose 87 Calcium 9.0 D Discharge Plan Discharge Anticipated Discharge Date/Time: 04/12/23 11:58 Patient Disposition: Home, Self-Care Discharge Diagnosis: acute appendicitis Referrals: Physician,Carlos J [Primary Care Provider] - 1 Week Ortega Naik MD [Physician] - 1 Week Discharge Medications: New ondansetron HCl 4 mg tablet 4 mg PO Q6H PRN (Reason: nausea and vomiting) Qty: 10 0RF oxycodone 5 mg tablet 5 mg PO Q4H PRN (Reason: pain) Qty: 20 0RF Rx Instructions: Partial Fill upon patient request. Continued fluoxetine 20 mg Capsule 60 mg PO DAILY Diet: Advance to usual diet Activity on Discharge: No heavy lifting Stand Alone Forms: Patient Portal Discharge page Activity Restrictions/Additional Instructions: You had a laparoscopic appendectomy performed by Dr. Naik. It is normal to feel some minor abdominal discomfort due to the gas from the operation, however if you develop severe pain in your abdomen or chest, fevers over 100F, vomiting and are unable to keep liquids down, you should contact Dr. Naik or report to the nearest emergency department. If your incisions become red, swollen and tender, draining pus or have problems, please contact Dr. Naik report to the nearest emergency department. If you have bandages on your incisions, leave them in place for 48 hours, then remove them. You can shower but not soak in a tub after removing the bandages. If there are paper tapes known as butterflies/Steri-Strips, leave them fall off on their own in 1-2 weeks. You do not need to put another bandage on your incisions unless your clothing rubs and irritates your incisions. You can shower after you removed your bandages in 48 hours, but do not soak in a tub, go in a pool, or go swimming in a [place] pond or ocean. Please let the paper tapes to dry after getting them wet. You do not need to replace a bandage on lesser clothing irritates the incision. You may find that pants with an elastic waist like gym cloths or suspenders are more comfortable than pants requiring a belt until your incisions completely heal. Because of the operation, you should not lift more than 20 lb for the next 4 weeks. Any strenuous activity such as lifting more than 20 lb, digging, yoga, any athletic activity, like running, soccer, or other strenuous activity, lifting heavy bags/groceries, swimming, martial arts, or other strenuous athletic activities can cause hernias. If you have any questions regarding a specific activity, please ask Dr. Naik. Avoiding strenuous activities will minimize the risk of incisional hernias. At your 1 week post-op office visit, Dr. Naik will discuss returning to work on light duty with you. Since you can perform light duty, you are not disabled, but your employer may not allow you to return until you have no restrictions; it is up to you to discuss this issue, as we cannot disclose personal information. Please bring any paperwork to that follow-up appointment from your employer. Please note that you are not disabled and need to discuss your work restrictions for medical reasons with your employer. If you do not have a follow-up post-op visit, call [phone] to schedule one, or call with questions. If you were prescribed an antibiotic, continue taking the medication as prescribed. The anesthesia from the operation and pain medicine will cause constipation. You can purchase [id number]-tdg-ijukazh stool softener known as Colace/docusate, 100 mg and take 2 tablets in the morning with breakfast and 2 tablets in the evening after dinner to minimize this problem. Even if you are not taking narcotics, the anesthesia can cause constipation. Unless you have a medical reason, you should take onea-[id number] T ylenol/acetaminophen, 2 tablets with izfw-bvz-pdyezgq ibuprofen, 2 tablets, every 6 hours to help with pain. Add the narcotic pain medicine if you are still having pain. Ice packs are also allowed to minimize pain and swelling. You should eat a high-protein, high-fiber, low-fat diet to optimize healing. Please resume any preoperative medications unless otherwise directed by Dr. Naik. Please contact your primary care provider for a follow-up appointment in 2 weeks. Care Plan Goals: Allow adequate postoperative healing Health Concerns: Allow adequate postoperative healing Plan of Treatment: Allow adequate postoperative healing Assessment: Acute appendicitis, status post laparoscopic appendectomy
[2023-04-12] MEDS: Docusate Sodium 100 MG CAPSULE 200 MG PO (08:19)
[2023-04-12] MEDS: oxyCODONE HCl Immed Release 5 MG TABLET PO (08:23)
--- NOTE | 2023-04-12 09:20 | MHC.CM.PN ---
Addendum entered by Brittaney Gilliam 04/12/23 11:50: Patient is discharged to home today. She has arranged for a ride home. Addendum entered by Naima Montero 04/12/23 09:22: PCP: VINOD MORENO AT [facility] Original Note: Female 37 S/P Appendectomy She lives with her family. She is independent with all functional mobility. She declines the offer to document a HCP. DP home self care. Patient has arranged for transportation home from a family member.
--- NOTE | 2023-04-12 13:30 | HO.POSTANES ---
Post Anesthesia Evaluation Post Anesthesia Evaluation Date of Service: 04/12/23 Vital Signs: Vital Signs Temp Pulse Resp BP Pulse Ox O2 Del Method 04/12/23 08:26 Room Air 04/12/23 07:00 97.8 F 87 16 102/59 L 97 Room Air 04/12/23 03:55 96.8 F 92 16 109/61 98 Anesthesia: General Endotracheal-GETA Mental Status: Awake Pain Control: Satisfactory Nausea/Vomiting: None Hydration: Adequate Anesthesia-Related Issues: No Anes. Related Issues
== END 2023-04-12 11:52 | disposition home or self-care (01) | DRG 234 ==
LOC: HO.ED 04-11 01:44 → HO.EDOVER 04-11 02:40 → HO.S3 04-11 05:33
PROVIDERS: Admitting Provider Surgery; Emergency Provider Internal Medicine; PCP Nurse Practitioner Primary Care; Visit Provider Surgery
PROC: 0DTJ4ZZ Resection of Appendix, Percutaneous Endoscopic Approach (ICD-10-PCS; CPT 44970; principal; 2023-04-11 10:00)
DX: K35.80 Unspecified acute appendicitis (principal); Z90.710 Acquired absence of both cervix and uterus
CPT/HCPCS: 36415; 74177; 80048; 80053; 81001; 83690; 85025; 85027; 88304; 99221; 99285; C1713; J0131; J1170; J2250; J2270; J2405; J2543; J2795; J3010

== ENCOUNTER → 2023-04-11 02:36 | Outpatient (BNV) | payer MEDICAID, SELFPAY | PROVIDERS: Admitting Provider Surgery; Emergency Provider Internal Medicine; Visit Provider Surgery | DX: Z90.49 Acquired absence of other specified parts of digestive tract (principal); K35.80 Unspecified acute appendicitis | CPT/HCPCS: 44970; 99024; 99222 ==

== ENCOUNTER 2023-04-25 09:33 | Outpatient (AMB) | payer MEDICAID, SELFPAY ==
--- NOTE | 2023-04-25 09:39 | A.OFFVIS_ITS ---
Intake Vital Signs 04/25/23 09:43 Height 5 ft 4 in Weight 142 lb 13.753 oz BMI 24.5 BP 123/69 Blood Pressure Location Rt brachial Position Sitting Pulse 110 H Pulse Source Pulse Oximeter Temp 96.5 F L Temp Source Tympanic Pulse Oximetry (%) 96 Oxygen Delivery Method Room Air Intake Visit Reasons: Post op for appendectomy on 04/11 Allergies No Known Allergies Allergy (Unverified 02/28/20 16:25) HPI HPI Comments History of Present Illness Details The patient returns for follow-up after laparoscopic appendectomy for acute suppurative appendicitis 04/11/23. The patient is overall doing well and tolerating her diet, but she notes that the day of discharge, she started to experience symptoms of vaginal candidiasis. She originally took OTC Monistat which was unsuccessful so she contacted her rn diabetes and was prescribed Diflucan which initially seemed to help, but the symptoms have returned. [facility] Surgical History History of laparoscopic appendectomy Hx of tonsillectomy Hx of hysterectomy Social History Household Members: Family Housing: House Do you presently have visiting nurse or other home services: No Patient Tobacco Use Status: Never used Tobacco service: No Physical Exam On exam, she is anicteric and nontoxic She is in no acute respiratory distress Abdominal incisions are well healed with no evidence of hernia or cellulitis Results Reviewed Results Reviewed: Pathology confirmed acute suppurative appendicitis with no evidence of malignancy Assessment & Plan Assessment & Plan (1) S/P appendectomy: Code(s): Z90.49 - Acquired absence of other specified parts of digestive tract Plan Instructions regarding activity restrictions, specifically that the patient cannot lift more than 20 lb for the next month to minimize risk of incisional hernia was reviewed and apparently understood. 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 She looks a little uncomfortable today so I have given her a work note stating that she will be out for medical reasons and she will contact when she is improved after additional treatment and ready to return to work. Questions answered. Coding Level of Care Code Global (24366) Diagnoses S/P appendectomy Z90.49
[2023-04-25 09:43] VITALS: BP 123/69; PULSE 110; TEMP 35.8; O2SAT 96; BMI 24.5
== END 2023-04-25 09:58 | disposition home or self-care (01) ==
PROVIDERS: PCP Nurse Practitioner Primary Care; Visit Provider Surgery
DX: Z90.49 Acquired absence of other specified parts of digestive tract (principal)
CPT/HCPCS: 99024

== ENCOUNTER → 2023-04-25 09:33 | Outpatient (BNVA) | payer MEDICAID, SELFPAY | PROVIDERS: PCP Nurse Practitioner Primary Care; Visit Provider Surgery ==

== ENCOUNTER 2023-09-13 08:15 | Outpatient (AMB) | payer OTHER, SELFPAY ==
[2023-09-13 08:24] VITALS: BP 108/64; PULSE 98; TEMP 37.2; O2SAT 98; BMI 24.4
--- NOTE | 2023-09-13 08:24 | MHC.OFFWIV ---
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 She states last week she also had nausea vomiting and diarrhea which has resolved. [facility] Surgical History History of laparoscopic appendectomy Hx of tonsillectomy Hx of hysterectomy Social History (Reviewed 04/25/23 @ 09:55 by Ortega Naik MD, FACS, [facility]) Household Members: Family Housing: House Do you presently have visiting nurse or other home services: No Patient Tobacco Use Status: Never used Tobacco service: No Review of Systems Const All systems reviewed & are unremarkable except as noted in HPI and below Physical Exam Vital Signs: Last Vital Signs Temp 99.0 F 09/13/23 08:24 Pulse 98 09/13/23 08:24 BP 108/64 09/13/23 08:24 Pulse Ox 98 09/13/23 08:24 Oxygen Delivery Method Room Air 09/13/23 08:24 BMI result Body Mass Index 24.4 HEENT Head: Yes normal to inspection Ears: hearing grossly normal bilaterally, external ears normal and TM's normal bilaterally General nose exam: Normal external nose present Face and sinus: Yes sinuses nontender Throat: Yes posterior oropharynx abnormal (Exudative erythematous) Resp Effort & Inspection: normal respiratory effort Cardio Palpation: normal PMI Rate: regular rate Results AMB Rapid Strep AMB Rapid Strep Negative Last Edit by Rosendo Plummer CMA on 09/13/23 08:41 Results Reviewed Results Reviewed: Laboratory Last Values Strep Scn Rapid Clinic Negative 09/13/23 08:40 Her rapid strep was negative today and also reviewed with the patient was her EKG which was normal sinus rhythm. Assessment & Plan Assessment & Plan (1) Sore throat: Code(s): J02.9 - Acute pharyngitis, unspecified Plan: The patient will push fluids and I treated her for exudative pharyngitis. A put her on prednisone 2 decrease inflammation in her throat. If she can not swallow water she will go to the emergency department. Plan See plan Orders: Orders AMB Rapid Strep Screen Today Z13.9 - Encounter for screening, unspecified Zonia Zaldivar NP SARS-CoV2/FLU/RSV Today J02.9 - Acute pharyngitis, unspecified RHONDA Barrios Medications: New amoxicillin 875 mg PO BID 20 tabs 0RF 10 days RHONDA Barrios prednisone Take 3 tabs for 3 days 10 mg PO DIRECTED 10 tabs 0RF J02.9 - Acute pharyngitis, unspecified RHONDA Barrios Coding Level of Care Code Est Pt Level 4 (53026) Diagnoses Sore throat J02.9
== END 2023-09-13 09:39 | disposition home or self-care (01) ==
PROVIDERS: PCP Nurse Practitioner Primary Care; Visit Provider Physician Assistant Medical
DX: J02.9 Acute pharyngitis, unspecified (principal)
CPT/HCPCS: 87880; 99214

== ENCOUNTER 2023-09-13 12:50 | Outpatient (REF) | payer OTHER, SELFPAY ==
[2023-09-13 13:37] LABS: Influenza A PCR NEGATIVE (Negative); Influenza B PCR NEGATIVE (Negative); Resp Syncy Virus RNA Qual PCR NEGATIVE (Negative); SARS COV2 PCR INHOUSE NEGATIVE (Negative)
== END 2023-09-13 12:51 | disposition home or self-care (01) ==
LOC: HO.LNP 12:50
PROVIDERS: Visit Provider Physician Assistant Medical
DX: J02.9 Acute pharyngitis, unspecified (principal)
CPT/HCPCS: 0241U

== ENCOUNTER 2023-09-19 15:01 | Emergency (ER) | payer OTHER, SELFPAY ==
--- NOTE | ~2023-09-19 | CT_ITS ---
EXAMINATION: CT HEAD WITHOUT CONTRAST CLINICAL INFORMATION: Blunt head trauma without loss of consciousness, significant head injury and posttraumatic headache. COMPARISON: None available. TECHNIQUE: Contiguous axial imaging was performed from the skull base to vertex without intravenous administration of contrast. This CT examination was performed using dose optimization techniques as appropriate, variously including the following: *Automated exposure control *Adjustment of mA and/or kV according to patient size (this includes techniques or standardized protocols for targeted exams where dose is matched to indication/reason for exam; i.e. extremities or head) *Use of iterative reconstruction technique DLP: 939.47 mGy-cm FINDINGS: Ventricles, sulci and cisterns are normal. There is no midline shift, no abnormal intra- or extra- axial fluid accumulation. Biswas and white matter differentiation is normal. Bone window images show no evidence of skull fracture. CT/CT head/brain wo IV con IMPRESSION: 1. Normal CT scan of the brain. 2. No intracranial hemorrhage or skull fracture is seen. 3. No evidence of space occupying lesion could be found. 4. The current plain CT scan of the brain shows no diagnostic evidence of acute cerebral infarction.
--- NOTE | ~2023-09-19 | CT_ITS ---
EXAMINATION: CT CERVICAL SPINE WITHOUT CONTRAST CLINICAL INFORMATION: Cervical spine injury and pain COMPARISON: None available. TECHNIQUE: Multiple 3.0 and 0.6 mm axial images were obtained from base of skull to T1 levels without IV contrast enhancement. Sagittal and coronal 2.0 mm bone window images were reconstructed from axial image data. This CT examination was performed using dose optimization techniques as appropriate, variously including the following: *Automated exposure control *Adjustment of mA and/or kV according to patient size (this includes techniques or standardized protocols for targeted exams where dose is matched to indication/reason for exam; i.e. extremities or head) *Use of iterative reconstruction technique DLP: 939.47 mGy-cm FINDINGS: C1/C2: Bony structures are intact with normal alignment. There is no spinal stenosis. C2/C3: Bony structures are intact with normal alignment. There is no spinal stenosis. Bilateral C2/C3 neuroforamina are patent. Bilateral apophyseal joints are intact with normal alignment. C3/C4: Bony structures are intact with normal alignment. There is no spinal stenosis. Bilateral C3/C4 neuroforamina are patent. Bilateral apophyseal joints are intact with normal alignment. C4/C5: Bony structures are intact with normal alignment. There is no spinal stenosis. Bilateral C4/C5 neuroforamina are patent. Bilateral apophyseal joints are intact with normal alignment. C5/C6: Limbus vertebra is seen at anterior inferior corner of C5. Bony structures are intact with normal alignment. There is no spinal stenosis. Bilateral C5/C6 neuroforamina are patent. Bilateral apophyseal joints are intact with normal alignment. C6/C7: Bony structures are intact with normal alignment. There is no spinal stenosis. Bilateral C6/C7 neuroforamina are patent. Bilateral apophyseal joints are intact with normal alignment. C7/T1: Bony structures are intact with normal alignment. There is no spinal stenosis. Bilateral C7/T1 neuroforamina are patent. Bilateral apophyseal joints are intact with normal alignment. CT/CT cervical spine wo IV con IMPRESSION: 1. Normal CT scan of the cervical spine. No cervical fracture or dislocation is seen.
[2023-09-19 15:06] VITALS: BP 128/70; PULSE 97; O2SAT 99
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
[2023-09-19 15:13] VITALS: BP 123/87; PULSE 90; RESP 18; TEMP 36.6; O2SAT 99; BMI 23.0
[2023-09-19] MEDS: Cyclobenzaprine HCl 5 MG TABLET PO (17:29)
[2023-09-19] MEDS: Ketorolac Tromethamine 15 MG/ML VIAL IM (17:29)
[2023-09-19 17:33] VITALS: BP 121/78; PULSE 82; RESP 18; TEMP 36.6; O2SAT 99
== END 2023-09-19 17:35 | disposition home or self-care (01) ==
PROVIDERS: Emergency Provider Emergency Medicine
DX: Z04.1 Encounter for examination and observation following transport accident (principal); R51.9 Headache, unspecified
CPT/HCPCS: 70450; 72125; 96372; 99283; 99284; J1885

== ENCOUNTER 2024-09-18 15:29 | Outpatient (REF) | payer OTHER, SELFPAY ==
[2024-09-18 17:50] LABS: Alanine Aminotransferase 53 U/L (0-31); Albumin Level 4.8 g/dL (3.5-5.0); Alkaline Phosphatase 102 U/L (39-117); Aspartate Amino Transferase 34 U/L (5-31); Bilirubin Direct 0.2 mg/dL (0.0-0.5); Bilirubin Total 0.7 mg/dL (0.0-1.0); C Reactive Protein < 0.10 mg/dL (< or = 0.50); Cholesterol 234 mg/dL (<200); HDL Cholesterol 61 mg/dL (>40); LDL Cholesterol Calculated 136 mg/dL (<100); Total Protein 7.4 g/dL (6.5-8.0); Triglycerides 185 mg/dL (<150)
[2024-09-18 18:10] LABS: Ferritin 86 ng/mL (10-122)
[2024-09-18 18:20] LABS: Folate 10.8 ng/mL (> or = 4.0); Gamma Glutamyl Transpeptidase 263 U/L (7-33); Vitamin B12 339 pg/mL (200-900)
[2024-09-19 12:43] LABS: Alpha Fetoprotein 8.6 ng/mL
[2024-09-19 21:58] LABS: Transglutaminase IgA <1.0 U/mL
[2024-09-21 00:34] LABS: Smooth Muscle Antibody <20 U (<20)
[2024-09-21 10:49] LABS: Mitochondrial Antibodies NEGATIVE (NEGATIVE)
[2024-09-22 17:29] LABS: Vitamin D 25-OH, D2 <4 ng/mL; Vitamin D 25-OH, D3 30 ng/mL; Vitamin D 25-OH, Total 30 ng/mL (30-100)
[2024-09-24 13:33] LABS: FIB-ALT 40 U/L (6-29); FIB-Alpha-2-Macroglobulin 163 mg/dL (106-279); FIB-Apolipoprotein A1 216 mg/dL (101-198); FIB-GGT 204 U/L (3-50); FIB-Haptoglobin 173 mg/dL (43-212); FIB-Total Bilirubin 0.6 mg/dL (0.2-1.2); Liver Fibrosis Score 0.09; Liver Fibrosis Stage F0; Nec Inflam Act Grade A0; Nec Inflam Act Score 0.17; Reference ID 5433413
== END 2024-09-18 15:30 | disposition home or self-care (01) ==
LOC: HO.LAB 15:29
PROVIDERS: Visit Provider Nurse Practitioner Family
DX: R10.11 Right upper quadrant pain (principal); R79.89 Other specified abnormal findings of blood chemistry; R19.7 Diarrhea, unspecified; K76.0 Fatty (change of) liver, not elsewhere classified; K58.9 Irritable bowel syndrome, unspecified; R74.8 Abnormal levels of other serum enzymes; E55.9 Vitamin D deficiency, unspecified; R74.01 Elevation of levels of liver transaminase levels; I25.10 Atherosclerotic heart disease of native coronary artery without angina pectoris; Z98.890 Other specified postprocedural states
CPT/HCPCS: 36415; 80061; 80076; 81596; 82105; 82306; 82607; 82728; 82746; 82977; 86015; 86140; 86364; 86381

== ENCOUNTER 2024-09-18 15:29 | Outpatient (AMB) | payer OTHER, SELFPAY ==
[2024-09-18 15:34] VITALS: BP 120/86; PULSE 88; O2SAT 99; BMI 25.0
--- NOTE | 2024-09-18 15:34 | MHC.OFFVIS ---
Vital Signs 09/18/24 15:34 Height 5 ft 3 in Weight 141 lb BMI 25.0 BP 120/86 Blood Pressure Location Rt brachial Position Sitting Pulse 88 Pulse Source Pulse Oximeter Pulse Oximetry (%) 99 Oxygen Delivery Method Room Air Intake Visit Reasons: colo screening Intake Note: NEW PATIENT for eval RUQ Pain and abn LFTs. 2nd opinion from [facility]. Hx of Cervical CA. Chief Complaint; C/O RUQ intermittent pain, pt reports liver bx ~ 2019 - 2020 via [facility]. [facility] recommended EGD for further diagnostic work up. Pt is requesting 2nd opinion. Still experiencing pain. Elevated labs which they did not receive much information on. Fatigue reported. 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 Patient has seen him [facility] in the past last office visit in 2022. Patient has been worked up for elevated liver enzymes and was told that she has fatty liver. Initially seen in 2018 for transaminitis and right upper quadrant pain liver biopsy did not show any inflammation fibrosis or steatosis. In regard to right upper quadrant pain she had an ultrasound that was negative HIDA scan was normal although patient reported that she had pain with infusion. Upon reviewing HIDA scan report no mentioned of EF. Patient reports pain usually after meals couple times a week patient reports that pain sometimes uncomfortable even when she is laying down. Patient denies acid reflux. Reports that she is moving her bowels fairly well. Denies melena, hematochezia, unintentional weight loss or ribbon like stools. Patient reports occasional dyspepsia, dysphagia end of odynophagia patient's ultrasound showed cholelithiasis without cholecystitis [facility] Surgical History (Updated 09/25/24 @ 13:03 by YOMI Gage-) History of liver biopsy (~2019) History of laparoscopic appendectomy Hx of tonsillectomy Hx of hysterectomy Social History Household Members: Family Housing: House Do you presently have visiting nurse or other home services: No Patient Tobacco Use Status: Never used Tobacco service: No Physical Exam Vital Signs: Last Vital Signs Pulse 88 09/18/24 15:34 BP 120/86 09/18/24 15:34 Pulse Ox 99 09/18/24 15:34 Oxygen Delivery Method Room Air 09/18/24 15:34 BMI result Body Mass Index 25.0 Assessment & Plan Assessment & Plan (1) History of liver biopsy: Onset Date: ~2019 Code(s): Z98.890 - Other specified postprocedural states Category: Medical (2) Transaminitis: Code(s): R74.01 - Elevation of levels of liver transaminase levels (3) RUQ abdominal pain: Code(s): R10.11 - Right upper quadrant pain Plan Patient continues to have transaminitis. Will rule out any autoimmune disorders. Patient will be sent for HIDA scan I do suspect biliary dyskinesia as GGT elevated and pain continues. Patient denies any fever or chills. Also possible biliary colic. Reviewed patient's records from PCP and him [facility]. Ultrasound showed cholelithiasis without cholecystitis. I will see patient in 3-4 months. Will call patient with results. Long discussion with patient about her symptoms. Patient will try low FODMAP diet in the meantime to avoid dietary triggers and certain food. Patient is agreeable to current plan of care and verbalizes understanding of instructions. She was given the opportunity to ask questions and all questions answered. Thank you for allowing me to participate in his care Orders: Orders Gamma Glutamyl Transpeptidase 09/18/24 R74.8 - Abnormal levels of other serum enzymes Mitochondrial Antibody 09/18/24 R79.89 - Other specified abnormal findings of blood chemistry Vitamin D 25-OH (D2 and D3) 09/18/24 E55.9 - Vitamin D deficiency, unspecified Vitamin B12 and Folate 09/18/24 R19.7 - Diarrhea, unspecified NM hepatobiliary w pharm Today R10.11 - Right upper quadrant pain Liver Panel 09/18/24 R74.01 - Elevation of levels of liver transaminase levels Liver Fibrosis Pnl 09/18/24 K76.0 - Fatty (change of) liver, not elsewhere classified C Reactive Protein 09/18/24 K58.9 - Irritable bowel syndrome, unspecified Smooth Muscle Antibody 09/18/24 R79.89 - Other specified abnormal findings of blood chemistry Lipid Panel 09/18/24 I25.10 - Atherosclerotic heart disease of [place] coronary artery without angina pectoris Ferritin 09/18/24 R74.8 - Abnormal levels of other serum enzymes Transglutaminase IgA 09/18/24 R10.9 - Unspecified abdominal pain Alpha Fetoprotein 09/18/24 R79.89 - Other specified abnormal findings of blood chemistry Coding Level of Care Code New Pt Level 4 (33976) Diagnoses History of liver biopsy Z98.890 Transaminitis R74.01 RUQ abdominal pain R10.11 Time Spent (min) 50 Comment 30 minutes spent with patient and additional 20 minutes spent reviewing her records
== END 2024-09-18 16:21 | disposition home or self-care (01) ==
PROVIDERS: PCP Nurse Practitioner Primary Care; Referring Provider Nurse Practitioner Primary Care; Visit Provider Nurse Practitioner Family
DX: Z98.890 Other specified postprocedural states (principal); R74.01 Elevation of levels of liver transaminase levels; R10.11 Right upper quadrant pain
CPT/HCPCS: 99204

== ENCOUNTER → 2024-09-25 07:56 | Outpatient (REF) | payer OTHER, SELFPAY ==
--- NOTE | ~2024-09-25 | NM_ITS ---
EXAMINATION: NM HEPATOBILIARY WITH PHARM HISTORY: R10.11 - Right upper quadrant pain. TECHNIQUE: An hepatobiliary scan was performed following the intravenous administration of 5.0 mCi technetium 99m-mebrofenin. Sequential images were obtained over 1 hour. Subsequently, the patient received 1.2 microgram of IV CCK over 30 minutes and additional imaging was performed. COMPARISON: Correlation is made with a CT of the abdomen with contrast dated 04/11/2023. FINDINGS: There is normal uptake and excretion of the radiopharmaceutical by the liver. Gallbladder activity is noted at 10 minutes. Common bile duct activity is seen at 72 minutes. Small bowel activity is noted at 72 minutes. After the administration of intravenous CCK, the estimated gallbladder ejection fraction is 4%, which is markedly decreased (normal 35-80%). NM/NM hepatobiliary w pharm IMPRESSION: Markedly decreased gallbladder ejection fraction, compatible with biliary dyskinesia. Electronically signed by: Sravan Simons MD 09/25/2024 10:35 AM EDT
== END ==
LOC: HO.NUCMED 07:56
PROVIDERS: PCP Nurse Practitioner Primary Care; Visit Provider Nurse Practitioner Family
DX: R10.11 Right upper quadrant pain (principal)
CPT/HCPCS: 78227; A9537; J2805

== ENCOUNTER → 2024-09-25 07:59 | Outpatient (BNV) | payer OTHER, SELFPAY | PROVIDERS: PCP Nurse Practitioner Primary Care; Visit Provider Radiology Diagnostic Radiology | DX: R10.11 Right upper quadrant pain (principal) | CPT/HCPCS: 78227 ==

== ENCOUNTER 2024-10-18 15:00 | Outpatient (AMB) | payer OTHER, SELFPAY ==
--- NOTE | 2024-10-18 15:00 | MHC.OFFVIS ---
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 The pain seems to be associated with food intake in his associated with the radiation into the epigastrium and right flank. The pain is associated with nausea but without fever or chills. Workup with CT and ultrasound was negative for gallstones however a recent HIDA scan does reveal a reduced ejection fraction suggestive of chronic cholecystitis/biliary dyskinesia. She reports that her family has a strong history of biliary disease. She presents today to discuss possible cholecystectomy. [facility] Surgical History History of liver biopsy (~2019) History of laparoscopic appendectomy Hx of tonsillectomy Hx of hysterectomy Social History Household Members: Family Housing: House Do you presently have visiting nurse or other home services: No Patient Tobacco Use Status: Never used Tobacco service: No Review of Systems Const All systems reviewed & are unremarkable except as noted in HPI and below Physical Exam Vital Signs: Last Vital Signs BP 122/82 10/18/24 15:06 BMI result Body Mass Index 26.2 Const General: comfortable and no acute distress Nutritional Appearance: well nourished Orientation/consciousness: patient oriented x3 Limitations: no limitations HEENT Head: Yes normocephalic and Yes atraumatic Resp Effort & Inspection: normal respiratory effort, no audible wheezes, no cough and no respiratory distress GI Inspection: Yes normal to inspection Palpation (GI): Soft to palpation, Tenderness to palpation present (GI) in the RUQ and Doe's sign positive, no guarding, not rigid and No hepatosplenomegaly present Skin General skin exam: no rashes or lesions noted Neuro General: patient oriented x3 Extrem General: Yes no clubbing, cyanosis or edema Results Reviewed Results Reviewed: HIDA scan:There is normal uptake and excretion of the radiopharmaceutical by the liver. Gallbladder activity is noted at 10 minutes. Common bile duct activity is seen at 72 minutes. Small bowel activity is noted at 72 minutes. After the administration of intravenous CCK, the estimated gallbladder ejection fraction is 4%, which is markedly decreased (normal 35-80%). Assessment & Plan Assessment & Plan (1) Biliary dyskinesia: Code(s): K82.8 - Other specified diseases of gallbladder Category: Medical Plan 38-year-old female presenting with complaints of abdominal pain in the right upper quadrant found to have no gallstones however HIDA scan does reveal a reduced ejection fraction of 4% suggestive of biliary dyskinesia. Her symptoms are most consistent with chronic cholecystitis therefore I would recommend an elective laparoscopic or possible open cholecystectomy. After review of the procedure, risks, and alternatives, she consents to laparoscopic or possible open cholecystectomy. She will be scheduled as a short-stay surgery. Coding Level of Care Code New Pt Level 4 (44957) Diagnoses Biliary dyskinesia K82.8
[2024-10-18 15:06] VITALS: BP 122/82; BMI 26.2
== END 2024-10-18 15:18 | disposition home or self-care (01) ==
LOC: HO.HGS 15:01
PROVIDERS: PCP Nurse Practitioner Primary Care; Visit Provider Surgery
DX: K82.8 Other specified diseases of gallbladder (principal)
CPT/HCPCS: 99204

== ENCOUNTER 2024-11-15 05:59 | Day surgery (SDC) | payer OTHER, SELFPAY ==
[2024-11-13 09:10] VITALS: BMI 26.2
[2024-11-15] VITALS (12 sets, daily range): BP systolic 92–122; BP diastolic 51–80; PULSE 72–143; RESP 16–18; TEMP 36.3–36.9; O2SAT 97–100; BMI 25.8
[2024-11-15] MEDS: Lactated Ringers 1,000 ML 100 ML IVCONT (06:28)
--- NOTE | 2024-11-15 07:03 | MHC.SHP ---
Pre-Procedural Eval Section A - 24 Hr Update-Section A only Date of Service: 11/15/24 The patient is an INPATIENT: No Changes since office visit: Yes Patient answered all questions; No Cold of Flu in the past 2 weeks, No New Medical Problems and No Changes in Medication The patient has been examined within 24 hours of the surgical procedure. The History & Physical has been completed within 30 days and I have reviewed it.: Yes Section B - Complete if H&P > 30 days Chief Complaint: Other specified diseases of gallbladder Allergies: Allergies Allergy/AdvReac Type Severity Reaction Status Date / Time No Known Allergies Allergy Verified 10/18/24 15:06 Plan Diagnosis/Plan: Unchanged I have reviewed the history and physical and performed a pertinent physical examination on my patient. No changes have occurred unless specified. Time Spent With Patient Time: Total time managing care of this patient today ____ minutes.
--- NOTE | 2024-11-15 07:25 | HO.ANESPROP2 ---
Documented by User: Minal Garland NP 11/13/24 13:54 HPI - Anesthesia Eval Consult details Narrative: 38yo F for Cholecystectomy Laparoscopic,possible open PMFSH Active Problems Active Problems: All Active Problems Biliary dyskinesia (Acute) History of liver biopsy (Acute ~2019) Sore throat (Acute) S/P appendectomy (Acute) Family History Family history of problems with anesthesia: No Surgical History Surgical History History of liver biopsy (~2019) History of laparoscopic appendectomy Hx of tonsillectomy Hx of hysterectomy History of Problems with Anesthesia: No Social History Social History Household Members: Family Housing: House Do you presently have visiting nurse or other home services: No Patient Tobacco Use Status: Never used Tobacco Have you been hit, kicked, punched, or otherwise hurt by someone within the past year? If so, by whom?: No Are you DNR?: No Advance Directives: No Advance Directives Information Provided: Yes service: No Meds Allergies Allergy/AdvReac Type Severity Reaction Status Date / Time No Known Allergies Allergy Verified 10/18/24 15:06 Home Medications ?Medication ?Instructions ?Recorded ?Confirmed ?Last Taken ?Type fluoxetine 20 mg capsule 60 mg PO DAILY 04/11/23 11/15/24 04/10/23 History lorazepam 1 mg tablet (Ativan) 1 mg PO DAILY PRN Anxiety 09/13/24 11/15/24 Unknown History Exam Height,Weight and Vital Signs: Height 5 ft 3 in Weight 67.132 kg Narrative Narrative: EKG 4 NSR @ 98 Assessment and Plan Assessment Anesthesia Assessment: Chart Reviewed Final Anesthetic Review Family History of Problems with Anesthesia: No History of Problems with Anesthesia: No Documented by User: Radha Posadas DO 11/15/24 07:54 PMFSH Family History Family history of problems with anesthesia: No Surgical History Surgical History History of liver biopsy (~2019) History of laparoscopic appendectomy Hx of tonsillectomy Hx of hysterectomy History of Problems with Anesthesia: No Social History Social History Household Members: Family Housing: House Do you presently have visiting nurse or other home services: No Patient Tobacco Use Status: Never used Tobacco Have you been hit, kicked, punched, or otherwise hurt by someone within the past year? If so, by whom?: No Are you DNR?: No Advance Directives: No Advance Directives Information Provided: Yes service: No Meds Allergies Allergy/AdvReac Type Severity Reaction Status Date / Time No Known Allergies Allergy Verified 10/18/24 15:06 Home Medications ?Medication ?Instructions ?Recorded ?Confirmed ?Last Taken ?Type fluoxetine 20 mg capsule 60 mg PO DAILY 04/11/23 11/15/24 04/10/23 History lorazepam 1 mg tablet (Ativan) 1 mg PO DAILY PRN Anxiety 09/13/24 11/15/24 Unknown History Exam Exam Date and Time: 11/15/24 0725 Height,Weight and Vital Signs: Height 5 ft 3 in Weight 67.132 kg Vital Signs Temperature 98.5 F 11/15/24 06:02 Pulse Rate 72 11/15/24 06:02 Respiratory Rate 18 11/15/24 06:02 Blood Pressure 122/80 11/15/24 06:02 Pulse Oximetry 99 11/15/24 06:02 Oxygen Delivery Method Room Air 11/15/24 06:02 Temperature 98.5 F 11/15/24 06:02 Pulse Rate 72 11/15/24 06:02 Respiratory Rate 18 11/15/24 06:02 Blood Pressure 122/80 11/15/24 06:02 Pulse Oximetry 99 11/15/24 06:02 Oxygen Delivery Method Room Air 11/15/24 06:02 Airway Mallampati Class: I TM Dist: <=3cm Neck ROM: Full Loose/Missing/Broken Teeth: No (patient denies any loose or broken teeth) Heart: S1S2 Lungs: CTAB Assessment and Plan Assessment Anesthesia Assessment: Anesthesia Plan Discussed and Chart Reviewed Final Anesthetic Review Family History of Problems with Anesthesia: No History of Problems with Anesthesia: No NPO: Yes ASA Class: II Final Preanesthetic Review: No Changes in Pt Med Stat, Meds/Allgs Chart Reviewed, Consent Obtained/Reviewed and Anes Risks/Benef Reviewed Patient Risk: Low Procedure Risk: Intermediate Anesthetic Plan Anesthetic Plan: GA and Agree w/ Assess. and Plan Disposition: Standard PACU
[2024-11-15] MEDS: cefoTEtan disodium 2 GM VIAL IVPUSH (07:40)
--- NOTE | 2024-11-15 08:18 | W.PM.OPN ---
Operative Note Operative Note Date of Service: 11/15/24 Narrative: Preoperative diagnosis: Biliary dyskinesia Postoperative diagnosis: Same Procedure: Laparoscopic cholecystectomy Surgeon: Edmundo Mckeon MD Medical Front Desk Coordinator: MICHAEL Tarango, JULIETA Heredia Anesthesia: General endotracheal Indications for procedure: 38-year-old female patient presenting with complaints of right upper quadrant abdominal pain and fatty food intolerance found to have no gallstones by ultrasound however HIDA scan was positive for biliary dyskinesia. She presents today for laparoscopic or possible open cholecystectomy. Operative findings: Normal appearing gallbladder with minimal adhesions to the undersurface of the gallbladder. No gallstones identified within the gallbladder. Specimen: gallbladder Estimated blood loss: Less than 2 mL Complications: None Procedure details: Patient was brought to the OR and placed in a supine position. After administering general anesthesia the patient's abdomen was prepped with ChloraPrep and draped in a sterile fashion. A surgical time-out was called the consent confirmed. Patient received preoperative antibiotics and Venodyne boots were in place. Local anesthesia consisting of 0.5% Sensorcaine without epinephrine was infiltrated in a periumbilical region. A 5 mm incision was made above the umbilicus in a transverse fashion. The Veress needle was then inserted while elevating abdominal cavity with towel clips. After positive drop test the abdomen was insufflated to a pressure of 15 mm of mercury. The Veress needle was then removed and a 5 mm trocar inserted. The camera was inserted in the abdomen explored. A 12 mm trocar was then placed in the epigastrium. Two 5 mm trocars placed in the right upper quadrant by the assistant spa director. The patient was placed in reverse Trendelenburg positioning and rotated to the left. The gallbladder was grasped with the fundus and retracted cephalad by the assistant spa director. The infundibulum was then grasped and retracted away from the liver bed, also by the assistant spa director. The Dolphin dissected was then used by the surgeon to dissect the peritoneum off the infundibulum to reveal the junction with the cystic duct. Cystic artery was noted slightly medial and posterior to the cystic duct. After obtaining a critical view the cystic duct was doubly clipped and divided. The cystic artery was then doubly clipped and divided. The gallbladder was then dissected off the liver bed using electrocautery with an L hook. Hemostasis was assured all times using the electrocautery. When the gallbladder is completely dissected off the liver bed was placed in an Endo-Catch bag and brought out through the epigastric incision. The gallbladder was sent to pathology for further examination. The abdomen was then re-examined. The liver bed was irrigated and suctioned dry. No bleeding or bile leak could be identified. CO2 was then evacuated and all trocars removed. Fascia was closed at the epigastric incision using a [id number] 0 Polysorb suture. Skin was closed in all incisions using a subcuticular 4 0 Polysorb suture by both the surgeon and assistant spa director. Sterile dressings consisting of Steri-Strips, 2 x 2 gauze, and Tegaderm were then applied. The patient tolerated the procedure well. Sponge instrument and needle counts reported as correct. The patient was transferred to PACU in stable condition.
[2024-11-15] MEDS: Haloperidol Lactate 5 MG/ML VIAL 1 MG IVPUSH (08:48)
[2024-11-15] MEDS: HYDROmorphone HCl 0.5 MG/0.5 ML SYRINGE 0.25 MG IVPUSH ×2 (09:07→09:20)
== END 2024-11-15 11:13 | disposition home or self-care (01) ==
PROVIDERS: Visit Provider Surgery
PROC: 0FT44ZZ Resection of Gallbladder, Percutaneous Endoscopic Approach (ICD-10-PCS; CPT 47562; principal; 2024-11-15 07:30)
DX: K81.1 Chronic cholecystitis (principal); K82.8 Other specified diseases of gallbladder; R11.0 Nausea; Z79.899 Other long term (current) drug therapy; Z98.890 Other specified postprocedural states
CPT/HCPCS: 47562; 88304; J0131; J1100; J1171; J1630; J1885; J2003; J2250; J2405; J2704; J3010

== ENCOUNTER → 2024-11-15 05:59 | Outpatient (BNV) | payer OTHER, SELFPAY | PROVIDERS: Visit Provider Surgery | DX: K82.8 Other specified diseases of gallbladder (principal) | CPT/HCPCS: 47562 ==

== ENCOUNTER 2024-11-20 13:12 | Outpatient (AMB) | payer OTHER, SELFPAY ==
--- NOTE | 2024-11-20 13:14 | A.OFFVIS_ITS ---
Vital Signs 11/20/24 13:23 Height 5 ft 3 in Weight 145 lb 2 oz BMI 25.7 BP 113/70 Blood Pressure Location Lt brachial Position Sitting Pulse 94 Intake Visit Reasons: S/P lap taco Intake Note: Patient is seen in office for post op assessment post laparoscopic cholecystectomy. 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 Patient was found to have evidence of chronic cholecystitis which was confirmed on pathology results. She reports constipation no bowel movement since surgery. She has been doing a generic MiraLax without any improvement. She mainly complains of bloating and pain in the right upper quadrant. She denies any problems with the incisions. [facility] Surgical History Hx laparoscopic cholecystectomy (11/15/24) History of liver biopsy (~2019) History of laparoscopic appendectomy Hx of tonsillectomy Hx of hysterectomy Social History Household Members: Family Housing: House Do you presently have visiting nurse or other home services: No Patient Tobacco Use Status: Never used Tobacco service: No Physical Exam Vital Signs: Last Vital Signs Pulse 94 11/20/24 13:23 BP 113/70 11/20/24 13:23 BMI result Body Mass Index 25.7 Const General: healthy appearing Nutritional Appearance: well nourished Orientation/consciousness: patient oriented x3 Resp Effort & Inspection: normal respiratory effort GI Other: Well-healed trocar incisions with intact Steri-Strips. No redness or discharge identified. Soft and nondistended. Neuro General: patient oriented x3 Extrem Other: No edema Assessment & Plan Assessment & Plan (1) Biliary dyskinesia: Code(s): K82.8 - Other specified diseases of gallbladder Category: Medical Plan 38-year-old female returning 1 week following laparoscopic cholecystectomy for chronic cholecystitis, biliary dyskinesia. Pathology confirmed chronic cholecystitis. Her main issue now is constipation. I recommended adding milk of magnesia to be taken at night before bed. If this does not improve she can try Dulcolax tabs. If no results with either, I recommended she call our office once again. Coding Level of Care Code Global (44140) Diagnoses Biliary dyskinesia K82.8
[2024-11-20 13:23] VITALS: BP 113/70; PULSE 94; BMI 25.7
== END 2024-11-20 14:12 | disposition home or self-care (01) ==
LOC: HO.HGS 13:13
PROVIDERS: PCP Nurse Practitioner Primary Care; Visit Provider Surgery
DX: K82.8 Other specified diseases of gallbladder (principal)
CPT/HCPCS: 99024